=== PATIENT | male | born 1975 | race Caucasian/White ===

== ENCOUNTER 2016-09-13 20:49 | Inpatient (IN) | payer OTHER ==
[~2016-09-13] VITALS: Ht 175.2 cm; Wt 97.7 kg
--- NOTE | ~2016-09-13 | ST ---
[place], [place] EXERCISE STRESS TEST REPORT NAME: JEREMIAH CARTER [facility] #: [id number] UNIT #: [id number] ROOM: 406 DOCTOR: CHRIS GALAN MD BIRTHDATE: [birth year] DOS: 09/14/2016 REFERRING: Dr. Knutson. INDICATION: Central chest pain. DESCRIPTION: The patient underwent standard Rudy protocol treadmill stress. The patient's baseline EKG is normal sinus, no ischemic changes. The patient's baseline heart rate 66 beats per minute with a blood pressure of 122/90. The patient achieved a maximum heart rate of 171 with a blood pressure of 168/70. The patient exercised 7 minutes reaching maximum heart rate of 171, which represents 95% of maximum predicted. The patient had atypical chest pain that was present prior to initiation of the exam, it was unchanged with exercise. The patient had no arrhythmias. The patient had no ischemic changes. SUMMARY OF FINDINGS: 1. Negative exercise treadmill stress test to average workload. 2. The patient's Busby Treadmill score of 7 portending a low risk prognosis. 3. The patient had atypical chest pain at onset of the stress that was unchanged with stress. 4. Please see separate report for perfusion scan imaging results. CHRIS GALAN MD CM:STRESS:EXERCISE STRESS TEST REPORT [id number] CHRIS GALAN MD
[~2016-09-13 20:49] MED LIST: AMOXICILLIN500 MG PO; AUGMENTIN 875 M1 TAB PO; AUGMENTIN 875875 MG PO; CEPHALEXIN500 M1 PO; CIPRO500 MG PO; CIPROFLOXACIN500 MG PO; CLINDAMYCIN HC300 MG PO; CYCLOBENZAPRINE10 MG PO; DOCUSATE SODIU100 M2 PO; DONNATAL1 TAB PO; FLAGYL500 MG PO; FLEXERIL10 MG PO; FLONASE 0.05% 121 EA NAS; GABAPENTIN PO; HYDROCODONE BIT1 T11 PO; IBUPROFEN800 MG PO; LEVOFLOXACIN500 MG PO; LISINOPRIL2.5 MG PO; LISINOPRIL5 MG PO; MEDROL DOSEPAK4 MG PO; MELOXICAM15 MG PO; METHYLPREDNISOLO PO; METOPROLOL100 MG PO; MOTRIN800 MG PO; Metformin Hydr500 MG PO; NEURONTIN100 MG PO; NEURONTIN300 MG PO; NO DAILY MEDS; NORCO 10-325 T1 EACH PO; NORCO 5-325 TA1 EACH PO; NORCO 7.5-3251 EACH PO; NORFLEX100 MG PO; PERCOCET 325 MG1 TAB PO; PREDNICOT20 MG PO; PREDNISONE10 MG PO; PREDNISONE20 MG PO; PRILOSEC OTC20 MG PO; PRILOSEC40 M1 PO; PRILOSEC40 MG PO; ROBAXIN500 M1 PO; ROBITUSSIN DM120 ML PO; SIMVASTATIN40 MG PO; TOBRADEX 0.1%-0.5 ML OPH; TRAMADOL HCL50 MG PO; TYLENOL W/CODEI1 TA3 PO; ULTRAM50 MG PO; VICODIN 5/500 505 MG PO; VICODIN 500 MG-1 TAB PO; VICODIN ES 7501 TAB PO; ZITHROMAX Z PA250 MG PO; ZITHROMAX250 MG PO; ZOFRAN ODT4 MG SL; ZOFRAN4 MG PO; ZYRTEC10 MG PO
[2016-09-13 20:54] VITALS: BP 164/99
[2016-09-13 21:27] LABS: BASO # 0.1 10*3/uL (0.0-0.1); EOS # 0.2 10*3/uL (0.0-0.4); EOS % 2.6 % (1.0-4.0); HEMATOCRIT 41.2 % (42.0-52.0); HEMOGLOBIN 14.3 g/dl (14.0-18.0); LYMPH # 2.9 10*3/uL (1.3-4.4); MEAN CELL VOLUME 87.7 fl (80.0-94.0); MEAN CORPUSCULAR HGB 30.4 pg (27.0-31.0); MEAN CORPUSCULAR HGB CONC 34.7 g/dl (33.0-37.0); MEAN PLATELET VOLUME 8.2 fl (9.6-12.3); MONO # 0.5 10*3/uL (0.1-1.0); MONO % 6.7 % (3.0-9.0); NEUT # 3.4 10*3/uL (2.3-7.9); NEUT % 48.6 % (47.0-73.0); PLATELET COUNT AUTOMATED 181 10*3/uL (130-400); RED CELL DISTRI WIDTH 12.1 % (0-14.5); WHITE BLOOD COUNT 7.1 10*3/uL (4.8-10.8)
[2016-09-13 21:35] VITALS: BP 157/87
[2016-09-13 21:37] LABS: PROTHROMBIN TIME 10.1 SECONDS (9.0-12.4)
[2016-09-13 21:44] LABS: ALBUMIN 3.9 gm/dl (3.1-4.5); ALKALINE PHOSPHATASE 119 U/L (45-117); BILIRUBIN, TOTAL 0.4 mg/dl (0.2-1.0); BUN 11 mg/dl (7-24); CARBON DIOXIDE 23 mmol/L (21-32); CHLORIDE 109 mmol/L (98-107); CPK 86 U/L (39-308); EST GLOM FILT AFRICAN AMERICAN > 60 ml/min; GLUCOSE 133 mg/dL (65-99); MAGNESIUM 2.1 mg/dL (1.5-2.1); POTASSIUM 4.1 mmol/L (3.5-5.1); SGOT/AST 13 IU/L (3-35); SGPT/ALT 28 U/L (12-78); SODIUM 141 mmol/L (136-145); TOTAL PROTEIN 6.8 gm/dL (6.4-8.2)
[2016-09-13 21:47] LABS: CKMB 0.7 ng/ml (0.5-3.6); TROPONIN I < 0.015 ng/ml (<0.045)
[2016-09-13 22:01] VITALS: BP 176/92
[2016-09-13 22:45] VITALS: BP 146/98
[2016-09-14] VITALS: BP 118/75
[2016-09-14 06:34] LABS: BASO # 0.1 10*3/uL (0.0-0.1); EOS # 0.2 10*3/uL (0.0-0.4); EOS % 2.9 % (1.0-4.0); HEMATOCRIT 40.3 % (42.0-52.0); LYMPH # 2.6 10*3/uL (1.3-4.4); LYMPH % 41.6 % (27.0-41.0); MEAN CELL VOLUME 87.4 fl (80.0-94.0); MEAN CORPUSCULAR HGB 30.4 pg (27.0-31.0); MEAN CORPUSCULAR HGB CONC 34.7 g/dl (33.0-37.0); MEAN PLATELET VOLUME 8.9 fl (9.6-12.3); MONO # 0.4 10*3/uL (0.1-1.0); MONO % 6.5 % (3.0-9.0); NEUT % 47.8 % (47.0-73.0); PLATELET COUNT AUTOMATED 176 10*3/uL (130-400); RED BLOOD COUNT 4.61 10*6/uL (4.50-5.90); RED CELL DISTRI WIDTH 12.4 % (0-14.5); WHITE BLOOD COUNT 6.2 10*3/uL (4.8-10.8)
[2016-09-14 07:05] LABS: BUN 12 mg/dl (7-24); CARBON DIOXIDE 25 mmol/L (21-32); CHLORIDE 111 mmol/L (98-107); CHOLESTEROL 190 mg/dL (<200); EST GLOM FILT AFRICAN AMERICAN > 60 ml/min; FREE T4 0.99 ng/dl (0.76-1.46); GLUCOSE 102 mg/dL (65-99); HDL CHOLESTEROL 43 mg/dl (40-60); LDL CHOLESTEROL 102 mg/dL (9-159); MAGNESIUM 2.2 mg/dL (1.5-2.1); PHOSPHOROUS 3.3 mg/dL (2.5-4.9); POTASSIUM 4.2 mmol/L (3.5-5.1); SODIUM 143 mmol/L (136-145); TRIGLYCERIDES 225 mg/dl (<150); VLDL CHOLESTEROL 45 mg/dL (6-40)
[2016-09-14 08:00] VITALS: BP 107/59
[2016-09-14 08:08] LABS: VITAMIN D, 25-HYDROXY 29.6 ng/mL (30-100)
[2016-09-14 08:09] LABS: FOLIC ACID 11.76 ng/mL (>5.38)
[2016-09-14 08:30] LABS: HEMOGLOBIN A1c 5.6 % (4.8-5.6)
[2016-09-14 12:00] VITALS: BP 107/59
== END 2016-09-14 15:20 | disposition home or self-care (01) | DRG 313 ==
LOC: ED 20:49 → EDHOLD 22:24 → 4E 22:33
PROVIDERS: Emergency Medicine Emergency Medical Services; Internal Medicine
PROC: 4A02XM4 Measurement of Cardiac Total Activity, External Approach (ICD-10-PCS; principal; 2016-09-14)
DX: R07.9 Chest pain, unspecified (principal); E11.65 Type 2 diabetes mellitus with hyperglycemia; E87.8 Other disorders of electrolyte and fluid balance, not elsewhere classified; I10 Essential (primary) hypertension; E78.00 Pure hypercholesterolemia, unspecified; K21.9 Gastro-esophageal reflux disease without esophagitis; M50.30 Other cervical disc degeneration, unspecified cervical region; K58.9 Irritable bowel syndrome, unspecified; E78.5 Hyperlipidemia, unspecified; E83.51 Hypocalcemia; Z82.49 Family history of ischemic heart disease and other diseases of the circulatory system; Z83.3 Family history of diabetes mellitus; Z80.3 Family history of malignant neoplasm of breast; Z79.899 Other long term (current) drug therapy; Z82.3 Family history of stroke; Z89.029 Acquired absence of unspecified finger(s); Z79.2 Long term (current) use of antibiotics

== ENCOUNTER 2016-11-07 12:56 | Emergency (ER) | payer OTHER ==
[~2016-11-07] VITALS: Ht 175.2 cm; Wt 98.4 kg
[2016-11-07 13:06] VITALS: BP 169/97
== END 2016-11-07 13:43 | disposition home or self-care (01) ==
LOC: ED 12:56
DX: S05.02XA Injury of conjunctiva and corneal abrasion without foreign body, left eye, initial encounter (principal); Z79.899 Other long term (current) drug therapy; X58.XXXA Exposure to other specified factors, initial encounter; Y93.89 Activity, other specified; Y92.89 Other specified places as the place of occurrence of the external cause; Y99.8 Other external cause status

== ENCOUNTER 2017-07-03 17:33 | Emergency (ER) | payer SELFPAY ==
[~2017-07-03] VITALS: Ht 175.2 cm; Wt 96.2 kg
[2017-07-03 17:49] VITALS: BP 152/91
[2017-07-03 18:12] LABS: BASO # 0.1 10*3/uL (0.0-0.1); BASO % 0.6 % (0.0-1.0); EOS # 0.2 10*3/uL (0.0-0.4); EOS % 2.2 % (1.0-4.0); HEMATOCRIT 46.3 % (42.0-52.0); HEMOGLOBIN 16.4 g/dl (14.0-18.0); LYMPH # 3.2 10*3/uL (1.3-4.4); LYMPH % 41.6 % (27.0-41.0); MEAN CELL VOLUME 85.1 fl (80.0-94.0); MEAN CORPUSCULAR HGB 30.1 pg (27.0-31.0); MEAN CORPUSCULAR HGB CONC 35.4 g/dl (33.0-37.0); MEAN PLATELET VOLUME 8.5 fl (9.6-12.3); MONO # 0.5 10*3/uL (0.1-1.0); MONO % 6.2 % (3.0-9.0); NEUT # 3.8 10*3/uL (2.3-7.9); NEUT % 49.1 % (47.0-73.0); PLATELET COUNT AUTOMATED 217 10*3/uL (130-400); RED BLOOD COUNT 5.44 10*6/uL (4.50-5.90); RED CELL DISTRI WIDTH 12.6 % (0-14.5); WHITE BLOOD COUNT 7.8 10*3/uL (4.8-10.8)
[2017-07-03 18:29] LABS: ALBUMIN 4.8 gm/dl (3.1-4.5); BUN 12 mg/dl (7-24); CHLORIDE 101 mmol/L (98-107); CREATININE 1.28 mg/dL (0.70-1.30); POTASSIUM 3.7 mmol/L (3.5-5.1); SGOT/AST 23 IU/L (3-35); SGPT/ALT 36 U/L (12-78); SODIUM 139 mmol/L (136-145); TOTAL PROTEIN 8.5 gm/dL (6.4-8.2)
[2017-07-03 18:31] LABS: ALKALINE PHOSPHATASE 134 U/L (45-117)
== END 2017-07-03 19:51 | disposition left against medical advice (07) ==
LOC: ED 17:33
PROVIDERS: Nurse Practitioner Family
DX: R06.00 Dyspnea, unspecified (principal); M54.2 Cervicalgia; J02.9 Acute pharyngitis, unspecified; R07.89 Other chest pain; R20.2 Paresthesia of skin; I10 Essential (primary) hypertension; K21.9 Gastro-esophageal reflux disease without esophagitis; E78.00 Pure hypercholesterolemia, unspecified; E11.9 Type 2 diabetes mellitus without complications; Z79.899 Other long term (current) drug therapy

== ENCOUNTER 2018-02-26 18:10 | Emergency (ER) | payer SELFPAY ==
[~2018-02-26] VITALS: Ht 175.2 cm; Wt 99.8 kg
--- NOTE | ~2018-02-26 | EKG ---
[place], [place] ELECTROCARDIOGRAM REPORT NAME: JEREMIAH CARTER UNIT #: [id number] ROOM: DOCTOR: EPIPHANY DRAFT REPORT BIRTHDATE: [birth year] [facility] Test Date: 2018-02-26 Test Time: 18:25:51 Pat Name: JEREMIAH CARTER Department: ED Room: 1 Gender: M Registered Associate: Bernard Wright : 1975 Requested By: SANDY PABLO Order Number: [id number] Reading MD: Refugio Peres MD Measurements Intervals [place] Rate: 77 P: 49 MS: 186 QRS: 30 QRSD: 87 T: 15 QT: 357 QTc: 404 Interpretive Statements Sinus rhythm Borderline low voltage, extremity leads ST elev, probable normal early repol pattern Electronically Signed On 02-27-2018 4:17:54 PDT by Refugio Peres MD CM:EKGRPT:ELECTROCARDIOGRAM REPORT [id number] SANDY BOWER DRAFT REPORT SANDY PABLO M.D.
[2018-02-26 19:21] LABS: BASO % 0.5 % (0.0-1.0); EOS # 0.1 10*3/uL (0.0-0.4); EOS % 1.9 % (1.0-4.0); HEMATOCRIT 44.7 % (42.0-52.0); HEMOGLOBIN 15.5 g/dl (14.0-18.0); LYMPH # 3.5 10*3/uL (1.3-4.4); LYMPH % 46.6 % (27.0-41.0); MEAN CELL VOLUME 88.3 fl (80.0-94.0); MEAN CORPUSCULAR HGB 30.6 pg (27.0-31.0); MEAN CORPUSCULAR HGB CONC 34.7 g/dl (33.0-37.0); MEAN PLATELET VOLUME 8.6 fl (9.6-12.3); MONO # 0.5 10*3/uL (0.1-1.0); MONO % 6.4 % (3.0-9.0); NEUT # 3.4 10*3/uL (2.3-7.9); NEUT % 44.5 % (47.0-73.0); PLATELET COUNT AUTOMATED 197 10*3/uL (130-400); RED BLOOD COUNT 5.06 10*6/uL (4.50-5.90); RED CELL DISTRI WIDTH 12.1 % (0-14.5); WHITE BLOOD COUNT 7.6 10*3/uL (4.8-10.8)
[2018-02-26 19:38] LABS: ALBUMIN 4.3 gm/dl (3.1-4.5); ALKALINE PHOSPHATASE 110 U/L (45-117); BUN 13 mg/dl (7-24); CHLORIDE 106 mmol/L (98-107); CREATININE 1.26 mg/dL (0.70-1.30); POTASSIUM 3.8 mmol/L (3.5-5.1); SGOT/AST 36 IU/L (3-35); SGPT/ALT 66 U/L (12-78); SODIUM 140 mmol/L (136-145)
[2018-02-26 19:40] LABS: TROPONIN I < 0.015 ng/ml (<0.045)
[2018-02-26] MEDS ORDERED: SEPTDS PO (20:25)
[2018-02-26] MEDS ORDERED: MEDROL DOSEPAK4 MG PO (20:25)
[2018-02-26 20:42] VITALS: BP 146/72
== END 2018-02-26 20:29 | disposition home or self-care (01) ==
LOC: ED 18:10
PROVIDERS: Nurse Practitioner Family
DX: R07.1 Chest pain on breathing (principal); L72.8 Other follicular cysts of the skin and subcutaneous tissue; I10 Essential (primary) hypertension; K21.9 Gastro-esophageal reflux disease without esophagitis; E78.00 Pure hypercholesterolemia, unspecified; E11.9 Type 2 diabetes mellitus without complications; Z79.899 Other long term (current) drug therapy

== ENCOUNTER 2018-04-01 16:13 | Emergency (ER) | payer OTHER ==
[~2018-04-01] VITALS: Ht 175.2 cm; Wt 96.2 kg
[2018-04-01 16:13] VITALS: BP 175/97
[~2018-04-01 16:13] MED LIST changes: +SEPTDS PO
[2018-04-01] MEDS ORDERED: IBUPROFEN600 MG PO (18:42)
[2018-04-01] MEDS ORDERED: CEPHALEXIN500 M1 PO (18:42)
== END 2018-04-01 18:53 | disposition home or self-care (01) ==
LOC: ED 16:13
DX: D17.1 Benign lipomatous neoplasm of skin and subcutaneous tissue of trunk (principal); Z79.2 Long term (current) use of antibiotics; Z79.899 Other long term (current) drug therapy; Z89.029 Acquired absence of unspecified finger(s)

== ENCOUNTER 2018-06-18 21:40 | Emergency (ER) | payer OTHER ==
[~2018-06-18] VITALS: Ht 175.2 cm; Wt 99.8 kg
[~2018-06-18 21:40] MED LIST changes: +IBUPROFEN600 MG PO
[2018-06-18 22:29] LABS: BASO # 0.1 10*3/uL (0.0-0.1); BASO % 0.7 % (0.0-1.0); EOS # 0.2 10*3/uL (0.0-0.4); HEMOGLOBIN 15.3 g/dl (14.0-18.0); LYMPH # 3.3 10*3/uL (1.3-4.4); LYMPH % 39.9 % (27.0-41.0); MEAN CELL VOLUME 86.3 fl (80.0-94.0); MEAN CORPUSCULAR HGB CONC 34.8 g/dl (33.0-37.0); MEAN PLATELET VOLUME 8.3 fl (9.6-12.3); MONO # 0.7 10*3/uL (0.1-1.0); MONO % 8.8 % (3.0-9.0); NEUT % 48.5 % (47.0-73.0); PLATELET COUNT AUTOMATED 205 10*3/uL (130-400); RED CELL DISTRI WIDTH 12.3 % (0-14.5); WHITE BLOOD COUNT 8.3 10*3/uL (4.8-10.8)
[2018-06-18 22:46] LABS: ALBUMIN 4.1 gm/dl (3.1-4.5); ALKALINE PHOSPHATASE 107 U/L (45-117); BUN 14 mg/dl (7-24); CHLORIDE 105 mmol/L (98-107); CREATININE 1.23 mg/dL (0.70-1.30); LIPASE 118 U/L (73-393); POTASSIUM 3.6 mmol/L (3.5-5.1); SGOT/AST 30 IU/L (3-35); SGPT/ALT 55 U/L (12-78); SODIUM 140 mmol/L (136-145); TOTAL PROTEIN 7.5 gm/dL (6.4-8.2)
[2018-06-18 22:58] LABS: BILIRUBIN NEGATIVE (NEGATIVE); BLOOD TRACE-LYSED (NEGATIVE); CLARITY CLEAR (CLEAR); COLOR YELLOW (YELLOW); GLUCOSE NEGATIVE (NEGATIVE); KETONE NEGATIVE (NEGATIVE); LEUKO ESTERASE NEGATIVE (NEGATIVE); NITRITE NEGATIVE (NEGATIVE); SPECIFIC GRAVITY >= 1.030 (1.005-1.030); UROBILINOGEN 0.2 E.U./dl (0.2-1.0)
[2018-06-18 23:12] LABS: RBC 0-2 rbc/hpf (0-2); WBC 0-2 wbc/hpf (0-5)
[2018-06-19 00:50] VITALS: BP 123/71
== END 2018-06-19 01:06 | disposition home or self-care (01) ==
LOC: ED 21:40
PROVIDERS: Student in an Organized Health Care Education/Training Program
DX: R10.84 Generalized abdominal pain (principal); R11.10 Vomiting, unspecified; R19.7 Diarrhea, unspecified; I10 Essential (primary) hypertension; E11.9 Type 2 diabetes mellitus without complications; Z79.899 Other long term (current) drug therapy

== ENCOUNTER 2018-09-03 20:41 | Emergency (ER) | payer OTHER ==
[~2018-09-03] VITALS: Ht 175.2 cm; Wt 102.1 kg
--- NOTE | ~2018-09-03 | EKG ---
[place], [place] ELECTROCARDIOGRAM REPORT NAME: JEREMIAH CARTER UNIT #: [id number] ROOM: DOCTOR: SATHISH DRAFT REPORT BIRTHDATE: [birth year] [facility] Test Date: 2018-09-03 Test Time: 21:02:04 Pat Name: JEREMIAH CARTER Department: Room: Gender: Cbx Operator: : 1975 Requested By: ENRICO TAMEZ Order Number: [id number] Reading MD: Refugio Peres MD Measurements Intervals [place] Rate: 87 P: 45 ID: 171 QRS: 33 QRSD: 90 T: 43 QT: 356 QTc: 429 Interpretive Statements Sinus rhythm Baseline wander in lead(s) V1 Compared to ECG 02/26/2018 18:25:51 ST (T wave) deviation no longer present Electronically Signed On 09-04-2018 4:12:52 PDT by Refugio Peres MD CM:EKGRPT:ELECTROCARDIOGRAM REPORT 01 041 ENRICO DAVIS DRAFT REPORT ENRICO TAMEZ DO
[2018-09-03 21:29] LABS: BASO # 0.1 10*3/uL (0.0-0.1); BASO % 0.8 % (0.0-1.0); EOS # 0.2 10*3/uL (0.0-0.4); EOS % 2.8 % (1.0-4.0); HEMATOCRIT 41.8 % (42.0-52.0); HEMOGLOBIN 14.5 g/dl (14.0-18.0); LYMPH # 3.4 10*3/uL (1.3-4.4); LYMPH % 48.1 % (27.0-41.0); MEAN CELL VOLUME 88.9 fl (80.0-94.0); MEAN CORPUSCULAR HGB 30.9 pg (27.0-31.0); MEAN CORPUSCULAR HGB CONC 34.7 g/dl (33.0-37.0); MEAN PLATELET VOLUME 8.4 fl (9.6-12.3); MONO # 0.5 10*3/uL (0.1-1.0); MONO % 6.4 % (3.0-9.0); NEUT % 41.8 % (47.0-73.0); PLATELET COUNT AUTOMATED 197 10*3/uL (130-400); RED CELL DISTRI WIDTH 12.2 % (0-14.5); WHITE BLOOD COUNT 7.2 10*3/uL (4.8-10.8)
[2018-09-03 21:30] VITALS: BP 130/78
[2018-09-03 21:42] LABS: ACT PARTIAL THROMBO TIME 23.5 SECONDS (20.8-31.5)
[2018-09-03 21:55] LABS: ALBUMIN 3.9 gm/dl (3.1-4.5); ALKALINE PHOSPHATASE 117 U/L (45-117); BUN 10 mg/dl (7-24); CHLORIDE 106 mmol/L (98-107); CREATININE 1.26 mg/dL (0.70-1.30); POTASSIUM 3.7 mmol/L (3.5-5.1); SGOT/AST 19 IU/L (3-35); SGPT/ALT 37 U/L (12-78); SODIUM 141 mmol/L (136-145); TOTAL PROTEIN 7.1 gm/dL (6.4-8.2)
[2018-09-03 22:01] LABS: TROPONIN I < 0.015 ng/ml (<0.045)
== END 2018-09-03 22:36 | disposition home or self-care (01) ==
LOC: ED 20:41
PROVIDERS: Student in an Organized Health Care Education/Training Program
DX: R07.89 Other chest pain (principal); E11.9 Type 2 diabetes mellitus without complications; Z79.2 Long term (current) use of antibiotics; Z79.899 Other long term (current) drug therapy; Z90.49 Acquired absence of other specified parts of digestive tract

== ENCOUNTER 2020-05-11 17:29 | Emergency (ER) | payer OTHER ==
[~2020-05-11] VITALS: Ht 175.2 cm; Wt 104.3 kg
[2020-05-11 17:38] VITALS: BP 136/90
== END 2020-05-11 19:23 | disposition home or self-care (01) ==
LOC: ED 17:29
DX: B34.9 Viral infection, unspecified (principal); Z20.828 Contact with and (suspected) exposure to other viral communicable diseases; Z79.899 Other long term (current) drug therapy

== ENCOUNTER 2021-02-15 01:01 | Emergency (ER) | payer OTHER ==
[~2021-02-15] VITALS: Ht 175.2 cm; Wt 88.0 kg
[2021-02-15 01:06] VITALS: BP 154/81
[2021-02-15 01:24] LABS: BASO # 0.1 10*3/uL (0.0-0.1); EOS # 0.2 10*3/uL (0.0-0.4); EOS % 3.7 % (1.0-4.0); HEMATOCRIT 43.9 % (42.0-52.0); LYMPH # 2.1 10*3/uL (1.3-4.4); LYMPH % 40.3 % (27.0-41.0); MEAN CELL VOLUME 87.3 fl (80.0-94.0); MEAN CORPUSCULAR HGB CONC 34.4 g/dl (33.0-37.0); MEAN PLATELET VOLUME 8.1 fl (9.6-12.3); MONO # 0.6 10*3/uL (0.1-1.0); MONO % 10.8 % (3.0-9.0); NEUT # 2.2 10*3/uL (2.3-7.9); PLATELET COUNT AUTOMATED 206 10*3/uL (130-400); RED BLOOD COUNT 5.03 10*6/uL (4.50-5.90); RED CELL DISTRI WIDTH 12.2 % (0-14.5); WHITE BLOOD COUNT 5.1 10*3/uL (4.8-10.8)
[2021-02-15 02:14] LABS: ALBUMIN 4.3 gm/dl (3.1-4.5); ALKALINE PHOSPHATASE 144 U/L (45-117); BUN 15 mg/dl (7-24); CHLORIDE 107 mmol/L (98-107); CREATININE 1.05 mg/dL (0.70-1.30); SGOT/AST 26 IU/L (3-35); SGPT/ALT 48 U/L (12-78); SODIUM 140 mmol/L (136-145); TOTAL PROTEIN 7.8 gm/dL (6.4-8.2)
[2021-02-15 02:15] LABS: TROPONIN I < 0.015 ng/ml (<0.045)
== END 2021-02-15 02:59 | disposition home or self-care (01) ==
LOC: ED 01:01
PROVIDERS: Internal Medicine
DX: R07.89 Other chest pain (principal); Z72.89 Other problems related to lifestyle; Z98.890 Other specified postprocedural states; Z79.899 Other long term (current) drug therapy

== ENCOUNTER 2021-10-04 08:12 | Emergency (ER) | payer OTHER ==
[~2021-10-04] VITALS: Ht 175.2 cm; Wt 102.1 kg
[2021-10-04 08:27] VITALS: BP 129/77
[2021-10-04] MEDS ORDERED: HYGROTON25 MG PO (08:28)
[2021-10-04] MEDS ORDERED: FENOFIBRATE145 M1 PO (08:29)
[2021-10-04] MEDS ORDERED: ZOLOFT50 MG PO (08:30)
[2021-10-04] MEDS ORDERED: AMLODIPINE-BEN1 EACH PO (08:30)
[2021-10-04] MEDS ORDERED: NEURONTIN600 MG PO (08:31)
== END 2021-10-04 09:09 | disposition home or self-care (01) ==
LOC: ED 08:12
DX: S49.82XA Other specified injuries of left shoulder and upper arm, initial encounter (principal); I10 Essential (primary) hypertension; E11.9 Type 2 diabetes mellitus without complications; E78.00 Pure hypercholesterolemia, unspecified; Z79.899 Other long term (current) drug therapy; Z98.890 Other specified postprocedural states; X50.1XXA Overexertion from prolonged static or awkward postures, initial encounter; Y93.89 Activity, other specified; Y92.89 Other specified places as the place of occurrence of the external cause; Y99.9 Unspecified external cause status

== ENCOUNTER 2022-01-02 20:18 | Emergency (ER) | payer OTHER ==
[~2022-01-02 20:18] MED LIST changes: +AMLODIPINE-BEN1 EACH PO; +FENOFIBRATE145 M1 PO; +HYGROTON25 MG PO; +NEURONTIN600 MG PO; +ZOLOFT50 MG PO
[2022-01-02 20:32] VITALS: BP 124/61
[2022-01-02] MEDS ORDERED: IBUPROFEN600 MG PO (23:00)
== END 2022-01-02 23:15 | disposition home or self-care (01) ==
LOC: ED 20:18
DX: S83.92XA Sprain of unspecified site of left knee, initial encounter (principal); Z79.899 Other long term (current) drug therapy; Z98.890 Other specified postprocedural states; Z90.49 Acquired absence of other specified parts of digestive tract; X58.XXXA Exposure to other specified factors, initial encounter; Y93.89 Activity, other specified; Y92.89 Other specified places as the place of occurrence of the external cause; Y99.8 Other external cause status

== ENCOUNTER 2022-09-09 13:28 | Emergency (ER) | payer OTHER ==
[~2022-09-09] VITALS: Ht 172.7 cm; Wt 90.7 kg
[2022-09-09 13:52] VITALS: BP 134/88
[2022-09-09] MEDS ORDERED: NAPROSYN500 MG PO (16:17)
== END 2022-09-09 16:29 | disposition home or self-care (01) ==
LOC: ED 13:28
DX: S83.92XA Sprain of unspecified site of left knee, initial encounter (principal); Z79.899 Other long term (current) drug therapy; Z90.89 Acquired absence of other organs; Z98.890 Other specified postprocedural states; X50.1XXA Overexertion from prolonged static or awkward postures, initial encounter; Y93.89 Activity, other specified; Y92.89 Other specified places as the place of occurrence of the external cause; Y99.8 Other external cause status

== ENCOUNTER 2023-05-10 23:58 | Emergency (ER) | payer OTHER ==
[~2023-05-10] VITALS: Ht 175.2 cm; Wt 90.7 kg
[~2023-05-10 23:58] MED LIST changes: +NAPROSYN500 MG PO
[2023-05-11 01:06] VITALS: BP 134/73
[2023-05-11] MEDS ORDERED: LOTREL 10-40 M1 EACH PO (01:08)
[2023-05-11 01:28] LABS: BILIRUBIN Negative (Negative); BLOOD Negative (Negative); CLARITY Clear (Clear); COLOR Yellow (Yellow); GLUCOSE Negative (Negative); KETONE Negative (Negative); LEUKO ESTERASE Negative (Negative); NITRITE Negative (Negative); SPECIFIC GRAVITY 1.025 (1.001-1.030)
[2023-05-11 01:40] LABS: BASO # 0.1 10*3/uL (0.0-0.1); BASO % 1.6 % (0.0-1.0); EOS # 0.2 10*3/uL (0.0-0.4); EOS % 4.7 % (1.0-4.0); HEMATOCRIT 43.1 % (42.0-52.0); LYMPH % 43.7 % (27.0-41.0); MEAN CELL VOLUME 93.3 fl (80.0-94.0); MEAN CORPUSCULAR HGB CONC 34.3 g/dl (33.0-37.0); MEAN PLATELET VOLUME 8.3 fl (9.6-12.3); MONO # 0.4 10*3/uL (0.1-1.0); MONO % 9.8 % (3.0-9.0); NEUT # 1.8 10*3/uL (2.3-7.9); PLATELET COUNT AUTOMATED 182 10*3/uL (130-400); RED BLOOD COUNT 4.62 10*6/uL (4.50-5.90); RED CELL DISTRI WIDTH 12.2 % (0-14.5); WHITE BLOOD COUNT 4.5 10*3/uL (4.8-10.8)
[2023-05-11 02:02] LABS: ACT PARTIAL THROMBO TIME 26.8 SECONDS (20.0-32.1)
[2023-05-11 02:03] LABS: ALKALINE PHOSPHATASE 109 U/L (46-116); BUN 13 mg/dl (9-23); CHLORIDE 109 mmol/L (98-107); LIPASE 53 U/L (12-53); POTASSIUM 3.9 mmol/L (3.4-5.1); SGPT/ALT 14 U/L (5-49); TOTAL PROTEIN 6.2 gm/dL (6.0-8.0)
[2023-05-11 02:12] LABS: RBC 0-2 rbc/hpf (0-2); WBC 0-2 wbc/hpf (0-5)
== END 2023-05-11 04:52 | disposition home or self-care (01) ==
LOC: ED 23:58
PROVIDERS: Family Medicine
DX: M79.18 Myalgia, other site (principal); R10.2 Pelvic and perineal pain; E11.9 Type 2 diabetes mellitus without complications; I10 Essential (primary) hypertension; K21.9 Gastro-esophageal reflux disease without esophagitis; Z98.890 Other specified postprocedural states; F17.290 Nicotine dependence, other tobacco product, uncomplicated

== ENCOUNTER 2024-02-14 22:31 | Emergency (ER) | payer OTHER ==
[~2024-02-14] VITALS: Ht 396.2 cm; Wt 83.9 kg
[~2024-02-14 22:31] MED LIST changes: +LOTREL 10-40 M1 EACH PO
[2024-02-14 22:43] VITALS: BP 138/90
== END 2024-02-15 00:35 | disposition left against medical advice (07) ==
LOC: ED 22:31
DX: M54.2 Cervicalgia (principal); Z53.29 Procedure and treatment not carried out because of patient's decision for other reasons; Z98.890 Other specified postprocedural states; W22.8XXA Striking against or struck by other objects, initial encounter; Y93.89 Activity, other specified; Y92.89 Other specified places as the place of occurrence of the external cause; Y99.8 Other external cause status

== ENCOUNTER 2024-05-16 08:22 | Emergency (ER) | payer MEDICAID ==
[~2024-05-16] VITALS: Ht 175.2 cm; Wt 81.6 kg
[2024-05-16 08:35] VITALS: BP 137/98
[2024-05-16] MEDS ORDERED: PREDNISONE20 M1 PO (08:43)
[2024-05-16] MEDS ORDERED: LEVOFLOXACIN750 M2 PO (08:43)
== END 2024-05-16 09:00 | disposition home or self-care (01) ==
LOC: ED 08:22
DX: J40 Bronchitis, not specified as acute or chronic (principal); H66.93 Otitis media, unspecified, bilateral; E11.9 Type 2 diabetes mellitus without complications; I10 Essential (primary) hypertension; K21.9 Gastro-esophageal reflux disease without esophagitis; Z98.890 Other specified postprocedural states; Z90.49 Acquired absence of other specified parts of digestive tract

== ENCOUNTER 2024-10-07 18:23 | Emergency (ER) | payer MEDICAID ==
[~2024-10-07] VITALS: Ht 175.2 cm; Wt 81.6 kg
[~2024-10-07 18:23] MED LIST changes: +LEVOFLOXACIN750 M2 PO; +PREDNISONE20 M1 PO
[2024-10-07 18:41] VITALS: BP 166/96
[2024-10-07] MEDS ORDERED: Lidocaine Hydrochloride 15 ML UDC PO STA (18:51)
[2024-10-07] MEDS ORDERED: MG-AL HYDROXIDE/SIMETICONE 30 ML UDC PO STA (18:51)
[2024-10-07] MEDS ORDERED: Dicyclomine Hydrochloride 20 MG/10 ML OSYR PO STA (18:51)
[2024-10-07 19:06] LABS: BASO # 0.1 10*3/uL (0.0-0.1); BASO % 0.8 % (0.0-1.0); EOS # 0.6 10*3/uL (0.0-0.4); EOS % 9.5 % (1.0-4.0); HEMATOCRIT 43.4 % (42.0-52.0); MEAN CELL VOLUME 91.4 fl (80.0-94.0); MEAN CORPUSCULAR HGB 30.9 pg (27.0-31.0); MEAN CORPUSCULAR HGB CONC 33.9 g/dl (33.0-37.0); MONO # 0.5 10*3/uL (0.1-1.0); MONO % 7.5 % (3.0-9.0); NEUT # 3.4 10*3/uL (2.3-7.9); NEUT % 55.7 % (47.0-73.0); PLATELET COUNT AUTOMATED 221 10*3/uL (130-400); RED BLOOD COUNT 4.75 10*6/uL (4.50-5.90); RED CELL DISTRI WIDTH 12.2 % (0-14.5); WHITE BLOOD COUNT 6.1 10*3/uL (4.8-10.8)
[2024-10-07 19:17] LABS: ACT PARTIAL THROMBO TIME 24.5 SECONDS (20.0-32.1)
[2024-10-07 19:33] LABS: BUN 14 mg/dl (9-23); CHLORIDE 105 mmol/L (98-107); POTASSIUM 4.3 mmol/L (3.4-5.1)
[2024-10-07 19:37] LABS: ETHYL ALCOHOL < 3.0 mg/dl (<3)
[2024-10-07 20:28] LABS: URINE AMPHETAMINES Negative (1000ng/ml); URINE BARBITURATES Negative (200ng/ml); URINE BENZODIAZEPINES Negative (200ng/ml); URINE CANNABINOIDS (THC) Positive (50ng/ml); URINE COCAINE Positive (300ng/ml); URINE METHADONE Negative (300ng/ml); URINE OPIATES Negative (300ng/ml); URINE PHENCYCLIDINE Negative (25ng/ml)
[2024-10-07] MEDS ORDERED: LORazepam 1 MG TAB PO ONE (21:00)
== END 2024-10-07 21:21 | disposition home or self-care (01) ==
LOC: ED 18:23
PROVIDERS: Internal Medicine
DX: R07.89 Other chest pain (principal); F14.90 Cocaine use, unspecified, uncomplicated; E11.9 Type 2 diabetes mellitus without complications; I10 Essential (primary) hypertension; K21.9 Gastro-esophageal reflux disease without esophagitis; Z79.899 Other long term (current) drug therapy; Z98.890 Other specified postprocedural states

== ENCOUNTER 2024-11-14 22:11 | Emergency (ER) | payer OTHER ==
[~2024-11-14] VITALS: Ht 175.2 cm; Wt 81.6 kg
[2024-11-14 22:11] VITALS: BP 144/72
[2024-11-14] MEDS ORDERED: MORPHINE Sulfate 2 MG/ML SYR IV ONE (22:30)
[2024-11-14] MEDS ORDERED: cefTRIAXone Sodium 1 GM/10 ML SYR IV ONE (22:30)
[2024-11-14 22:41] LABS: BASO # 0.1 10*3/uL (0.0-0.1); BASO % 0.7 % (0.0-1.0); EOS # 0.4 10*3/uL (0.0-0.4); HEMATOCRIT 40.6 % (42.0-52.0); MEAN CELL VOLUME 89.8 fl (80.0-94.0); MEAN CORPUSCULAR HGB 30.8 pg (27.0-31.0); MEAN CORPUSCULAR HGB CONC 34.2 g/dl (33.0-37.0); MEAN PLATELET VOLUME 7.9 fl (9.6-12.3); MONO # 0.7 10*3/uL (0.1-1.0); MONO % 9.7 % (3.0-9.0); NEUT # 5.6 10*3/uL (2.3-7.9); NEUT % 76.3 % (47.0-73.0); PLATELET COUNT AUTOMATED 184 10*3/uL (130-400); RED BLOOD COUNT 4.52 10*6/uL (4.50-5.90); RED CELL DISTRI WIDTH 12.4 % (0-14.5); WHITE BLOOD COUNT 7.3 10*3/uL (4.8-10.8)
[2024-11-14] MEDS ORDERED: HYDROCODONE-AC1 EAC1 PO (22:54)
[2024-11-14] MEDS ORDERED: AMOX-CLAV 875-1 EACH PO (22:54)
[2024-11-14 22:59] LABS: BUN 10 mg/dl (9-23); CHLORIDE 104 mmol/L (98-107); POTASSIUM 3.5 mmol/L (3.4-5.1)
== END 2024-11-14 23:30 | disposition home or self-care (01) ==
LOC: ED 22:11
PROVIDERS: Nurse Practitioner Family
DX: L02.01 Cutaneous abscess of face (principal); Z79.899 Other long term (current) drug therapy; Z98.890 Other specified postprocedural states